=== PATIENT | female | born 1975 | race Hispanic/Latino ===

== ENCOUNTER 2019-08-13 09:42 | Outpatient (CLI) | payer BC ==
--- NOTE | 2019-08-13 10:04 | RAD ---
RIGHT WRIST 3 VIEWS: HISTORY: Right wrist pain, nodule in the lateral aspect of right wrist FINDINGS: No acute fracture or dislocation is identified. No bony mass is seen. Further evaluation with MRI would be helpful.
== END 2019-08-13 09:43 | disposition home or self-care (01) ==
LOC: BICRAD 09:42
PROVIDERS: ATTEND Family Medicine
DX: M25.531 Pain in right wrist (principal)

== ENCOUNTER 2020-03-28 13:37 | Outpatient (CLI) | payer BC ==
--- NOTE | 2020-03-28 14:03 | RAD ---
RADIOGRAPH CERVICAL SPINE 5 VIEWS: DATE: 03/28/2020 HISTORY: 45-year-old female with cervical radiculopathy: Paresthesia and hypesthesia of tips of the digits TECHNIQUE: AP and lateral. Swimmer's. Flexion and extension. FINDINGS: Alignment is normal. Vertebral body heights and disc spaces are maintained. There is no prevertebral soft tissue swelling. There is no significant osteophyte, or any other focal osseous abnormality. There is no instability between flexion and extension. IMPRESSION: Normal.
--- NOTE | 2020-03-28 14:30 | RAD ---
LUMBAR SPINE 4 VIEWS: INDICATION: Back pain and leg pain. COMPARISON: Comparison is made to films from 2013. FINDINGS: Pedicle screws are seen at the L4-5 level. There is a grade I anterolisthesis at L4-5 with loss of d isk space. The disks above L4 are preserved. Lumbar vertebrae otherwise maintain height and alignme nt. Mild loss of disk space at L5-S1. Mild facet hypertrophy. IMPRESSION: Postoperative and degenerative changes of the lumbar spine. Anterolisthesis at L4-5 with loss of dis k space at this level. POS: AH
== END 2020-03-28 13:38 | disposition home or self-care (01) ==
LOC: BICRAD 13:37
PROVIDERS: ATTEND Physician Assistant
DX: M79.604 Pain in right leg (principal); R25.2 Cramp and spasm; M47.816 Spondylosis without myelopathy or radiculopathy, lumbar region; M43.16 Spondylolisthesis, lumbar region; Z98.890 Other specified postprocedural states
CPT/HCPCS: 72050; 72110

== ENCOUNTER 2022-02-21 15:15 | Outpatient (CLI) | payer BC | END 2022-02-21 15:16 | disposition home or self-care (01) | LOC: BICRAD 15:15 | PROVIDERS: ATTEND Family Medicine | DX: M54.6 Pain in thoracic spine (principal); M47.814 Spondylosis without myelopathy or radiculopathy, thoracic region | CPT/HCPCS: 72072 ==